=== PATIENT | female | born 1990 | race Caucasian/White ===

== ENCOUNTER 2023-05-27 11:42 | Emergency (ER) | payer OTHER ==
[~2023-05-27] VITALS: Ht 170.2 cm; Wt 69.0 kg
[2023-05-27 11:44] VITALS: O2SAT 100
[2023-05-27 13:30] LABS: CHLORIDE 102 mEq/L (98-107); INDEX HEMOLYSI 1 (1-3); INDEX ICTERIC 1 (1-4); INDEX LIPEMIC 1 (1-3); POTASSIUM 2.9 mEq/L (3.5-5.1); SODIUM 135 mEq/L (136-145)
[2023-05-27] MEDS ORDERED: TETANUS, DIPHTHERIA, PERTUSSIS VAC/PF 0.5ML (>10YR OLD) IM ONE (13:30)
[2023-05-27] MEDS ORDERED: ACETAMINOPHEN 325MG TABLET PO SCH (13:30)
[2023-05-27 13:31] LABS: HCG SCREEN NEGATIVE
[2023-05-27 13:37] LABS: ALANINE AMINOTRANSFERASE 71 IU/L (13-61); ALBUMIN 3.9 g/dL (3.4-5.0); ASPARTATE AMINOTRANSFERASE 67 IU/L (15-37); BILIRUBIN TOTAL 0.9 mg/dL (0.1-1.0); CARBON DIOXIDE 21 mEq/L (21-32); CREATININE 0.7 mg/dL (0.6-1.3); GLUCOSE 153 mg/dL (70-105); PROTEIN TOTAL 7.8 g/dL (6.0-8.3); UREA NITROGEN BLOOD 11 mg/dL (7-21)
[2023-05-27] MEDS ORDERED: POTASSIUM CHLORIDE 20MEQ/PACKET PO ONE (13:45)
[2023-05-27 14:07] VITALS: BP 128/85; PULSE 80; RESP 18; TEMP 98.1
== END 2023-05-27 14:29 | disposition home or self-care (01) ==
LOC: ER 12:09
DX: S09.90XA Unspecified injury of head, initial encounter (principal); W18.39XA Other fall on same level, initial encounter; Y93.89 Activity, other specified; Y92.89 Other specified places as the place of occurrence of the external cause; Y99.8 Other external cause status
CPT/HCPCS: 80053; 84703; 36415; 70450; 90715; 12001; 90471; 99285; Z7610 ×3